=== PATIENT | female | born 1970 | race Caucasian/White ===

== ENCOUNTER 2024-11-05 17:03 | Observation (INO) | payer OTHER, SELFPAY ==
[2024-11-05] VITALS (11 sets, daily range): BP systolic 125–173; BP diastolic 79–112; BMI 30.3; BMI 30.5
--- NOTE | 2024-11-05 11:50 | EDRN ---
Received patient on stretcher. Patient stated that she woke up with numbness in her left hand only and then developed a headache. Patient stated that she's been having intermittent headaches for several days. Left hand grasp slightly weaker than the
right. Denies any numbness,tingling,speech difficulty,visual changes and dizziness. Smile is equal. Tongue is midline. Pupils are equal and reactive to light.
[2024-11-05 12:10] LABS: Hematocrit 41.6 % (37.0-47.0); Hemoglobin 13.6 g/dL (12.0-16.0); Mean Corp Hgb Conc. 32.7 g/dL (33.0-37.0); Mean Corpuscular Volume 87.4 fL (81.0-99.0); Nucleated Red Blood Cells % 0 %; Platelet Count 210 10^3/uL (130-400); Red Cell Dist. Width 13.3 % (11.5-14.5)
[2024-11-05 12:28] LABS: ALT (SGPT) 27 U/L (0-35); AST (SGOT) 20 U/L (14-36); Albumin 4.3 g/dl (3.5-5.0); Alkaline Phosphatase 56 U/L (38-126); Blood Urea Nitrogen 21 mg/dl (7-17); Calcium 9.4 mg/dl (8.4-10.2); Carbon Dioxide 26 mmol/L (22-30); Chloride 108 mmol/L (98-107); Estimated Creatinine Clearance 80 ml/min; Glucose 126 mg/dl (70-99); Potassium 4.2 mmol/L (3.5-5.1); Sodium 141 mmol/L (135-145); Total Protein 7.0 g/dl (6.3-8.2); eGFR > 60.00
--- NOTE | 2024-11-05 12:44 | ED.GENMED ---
History of Present Illness
General
Chief Complaint: Headache
Source: patient
Time Seen by Provider: 11/05/24 12:07
History of Present Illness
History of Present Illness:
53-year-old female with past medical history of intermittent tachycardia presenting to the emergency department for evaluation after she woke up around 8 AM this morning noticing her left upper extremity felt numb accompanied with diminished
sensation to the left upper and left lower extremity accompanied with a right sided headache but patient notes that this headache has been waxing and waning over the last 2 weeks described to be temporal/parietal, improves with Excedrin but then
returns shortly thereafter, initially did not have the headache this morning but about 30 minutes prior to coming to the emergency department states the headache developed, now mostly resolved. Patient and both also state her speech seemed
a little bit slower this morning and still believes speech to be a little bit slower than usual. Patient also admits to some bilateral blurred vision. Denies any history of similar. No fevers or infectious symptoms, chest pain or
shortness of breath, abdominal pain, she denies any nausea to me despite what was reported in triage. Family history noncontributory. Social history was noted for occasional EtOH, admits to some minor alcohol last night but states nothing out of
the ordinary.
Past History
Past History
ED Past Medical History: Other (Intermittent tachycardic episodes)
ED Past Surgical History: Tonsilectomy
Social History
Tobacco: Non-smoker
Alcohol: Occasional
Drug: None
Personal:
Living: with family
Review of Systems
Review of Systems
All Other Systems: ROS reviewed and negative except as documented in HPI and ROS
Phy Exam
Physical Exam
Physical Exam:
GENERAL: Alert , in no apparent distress
HEAD: Normocephalic atraumatic
EYE: pupils equal and reactive,, 4 mm bilateral, EOMI
NECK: Supple
ENT: o/p clr, mmm.
CARDIAC: Regular rate and rhythm .
LUNGS: Clear breath sounds bilaterally, no acute respiratory distress, no wheezes/rales/rhonchi
ABDOMEN: Soft, without focal tenderness, no r/g, no cvat
SKIN: Warm and dry, skin intact.
MUSCULOSKELETAL: No edema, well perfused.
PSYCH: Normal and appropriate interaction.
NEURO: I do not appreciate any speech abnormalities, follows commands and answers questions appropriately, no ataxia, strength is 4 out of 5 to the left upper extremity, 5 out of 5 right upper extremity. 5 out of 5 bilateral lower extremities.
Patient reports subjective sensory diminish on the left upper and left lower extremity.
Scores
NIH Stroke Score
Level of Consciousness: 0 - Alert
LOC Questions: 0-Answers both correctly
LOC Commands: 0-Performs both correctly
Best Horizontal Gaze: 0-Normal
Visual Ortiz: 0=Normal, no visual loss
Facial Palsy: 0=Normal, symmetrical
Motor - Right Arm: 0=No drift 10 seconds
Motor - Left Arm: 0=No drift 10 seconds
Motor - Right Le-No drift 5 seconds
Motor - Left Le-No drift 5 seconds
Limb Ataxia: 0-Absent
Sensation: 1-Mild loss
Best Language: 0-No aphasia
Dysarthria: 0-Normal
Extinction and Inattention: 0-No abnormality
NIH Total Score:: 1
Thrombolytic Contraindication
Inclusion and Exclusion criteria reviewed: Yes
Reasons for NON-Tx with Thrombolytics ABSOLUTE Exclusions: Greater than 4.5 hrs from onset of sxs
Heart Failure Risk
Heart Failure Risk Score: Not Applicable
Heart Score for Chest Pain Patients
STEMI patient?: Not applicable
Withdrawal Assessment of Alcohol
Withdrawal Assessment Completed?: Not applicable
Course
Orders/Labs/Results
Orders:
Orders
11/05/24 11:50
C-Reactive Protein Urgent
Comment: ADD ON
CMP [Comprehensive Metabolic Panel] Urgent
Complete Blood Count/With Diff Urgent
Erythrocyte Sed Rate Urgent
Comment: ADD ON
Glycohemoglobin (HgbA1c) Urgent
11/05/24 12:42
CT Head & Neck Angio W/wo IV Urgent
Comment:
Reason For Exam: right side headache LUE weakness/numbness,LLE weak
11/05/24 12:43
Electrocardiogram (*1) Urgent
Reason for Study: TIA/Stroke
EKG- Treatment ONCE
11/05/24 12:44
Add On- LAB Urgent
Tests Added?: esr/crp
11/05/24 12:56
PTT Urgent
Prothrombin Time Urgent
Troponin I Urgent
11/05/24 15:45
Aspirin Chewable [Low Strength Aspirin] 263 mg PO NOW STA
Atorvastatin [Lipitor] 40 mg PO NOW STA
Clopidogrel Bisulfate [Plavix] 300 mg PO NOW STA
11/05/24 16:13
Consult Neurology [NEUROLOGY CONSULT] Routine
Consulting Provider: Charlie Baird
Was physician already notified: Yes
Reason for consult: New neurological issues
11/05/24 16:18
Admit/Transfer Patient As Directed
Co-Sign Provider:
Level of Care: Observation services
Assign to:: Telemetry
Physician / Group: [email or web address]
Diagnosis: abnormal sensorry dysfunction at both LUExt and LLEx
Reason for Telemetry: CVA/TIA
Date to Stop Telemetry: 11/08/24
Time to Stop Telemetry: 11:00
Reason for Hospitalization: abnormal sensory dysfunction at both LUExt and LLExt
Expected length of stay greater than two midnights?: Yes
11/05/24 16:23
Code Status As Directed
Resuscitation Status: Full Code
11/05/24 18:38
Acetaminophen [Tylenol/Feverall] 650 mg RECTAL Q4HPRN PRN
Acetaminophen [Tylenol] 650 mg PO Q4HPRN PRN
Atorvastatin [Lipitor] 40 mg PO QPM
11/05/24 18:38
Case Management Consult ONCE
Case Management Consult: Discharge Planning
Comment: stroke/tia
DIETARY IP CONSULT Routine
Reason for Consult: stroke/TIA
NEUROLOGY CONSULT Urgent
Consulting Provider: German Ponce
Was physician already notified: Yes
Reason for consult: r/o CVA
Quality Tech Urgent
MR Brain Without Contrast Routine
Comment:
Reason For Exam: stroke/TIA
Recent pill cam endoscopy?: No
Activity As Directed
Activity Level: With Assistance
NIH Stroke Scale As Directed
Directions: Per protocol
Comment: every shift and with any change in condition or mental status
Neurological Checks As Directed
Frequency: q4h
Additional Instructions:: q4h x 24h upon admission to the floor, then qshift & with any change in condition
and mental status
Patient Education As Directed
Type: Stroke education packet
Comment: provide to patient and family
Pneumatic Compression Sleeves As Directed
Type: Knee high
Vital Signs As Directed
Frequency: Per unit guidelines
Ot Eval And Treat Routine
Pt Eval And Treat Routine
Activity Level: With Assistance
Speech Therapy Eval & Treat Routine
DX Deep Vein Thrombosis Video Routine
11/06/24 06:00
Basic Metabolic Panel IN AM
Cardiovascular Evaluation IN AM
Complete Blood Count/No Diff IN AM
11/06/24 08:00
Aspirin Chewable [Low Strength Aspirin] 81 mg PO DAILY
Clopidogrel Bisulfate [Plavix] 75 mg PO DAILY
11/08/24 11:00
DC Protocol for Telemetry ONCE
Abnormal Lab Results
11/05/24
11:50
MCHC 32.7 L g/dL
(33.0-37.0)
MPV 11.0 H fL
(7.4-10.4)
Chloride 108 H mmol/L
(98-107)
BUN 21 H mg/dl
(7-17)
Glucose 126 H mg/dl
(70-99)
11/05/24 11:50
11/05/24 11:50
Vital Signs
Initial and Last Documented VS:
Initial Vital Signs
Temp Pulse Resp BP Pulse Ox
98.3 F 105 20 173/112 99
11/05/24 11:13 11/05/24 11:13 11/05/24 11:13 11/05/24 11:13 11/05/24 11:13
Last Documented Vital Signs
Temp Pulse Resp BP Pulse Ox
98.6 F 85 16 145/93 97
11/05/24 19:00 11/05/24 19:00 11/05/24 19:00 11/05/24 19:00 11/05/24 19:00
MDM/Problems Addressed
Differential Diagnosis Includes:
- Stroke
- Aneurysm
- Malignancy/mass
- MS
- Complex migraine
- Intracranial bleeding
- Electrolyte imbalance
- Peripheral neuropathy
- Hypertensive urgency
MDM/Problems Addressed:
53-year-old female presenting to the emergency department for evaluation of left-sided weakness/numbness, right-sided headache. Headaches have been ongoing for 2 weeks, today patient with the weakness and numbness. I did not call a stroke alert
given the onset of strokelike symptoms is unclear and could go his back is much as 2 weeks. NIH score of 1, not an IAT candidate. Will check CT and CTA head and neck, labs and EKG ordered. Initial triage vital signs noted for significant
hypertension and mild tachycardia, at time of my exam already much improved. Disposition pending.
*Radiology
Radiology exam reviewed: radiology read reviewed
*Pulse Oximetry
SaO2: 99
Oxygen Mode of Delivery: Room air
Patient hypoxic: no
*Lean Leader Interpretation
Rate: normal
Heart Rate: 88
Rhythm: sinus
*Critical Care Note
Total Time (30-74mins, 75-104mins- exclusive of procedures): Not Applicable
Patient Management
Discussion with other providers: Hospitalist and Furnace Reliner
Escalation/DeEscalation of care consider admission/obs:
Patient CT imaging noted for no acute intracranial pathology. I discussed the case with neurology who came to the emergency department to evaluate the patient. Please see their consult note. Following evaluation by neurology it was recommended
that patient be admitted for MRI. Will give 3 tablets of 81 mg aspirin as patient already took 181 mg aspirin today as well as Plavix load with 300 mg p.o. Hospitalist team was notified and accepts for continued evaluation and treatment.
ED Attending Note
-
Portions of this chart may have been created with voice recognition software.� Occasional wrong word or��sound alike� substitutions may have occurred due to the inherent limitations of voice recognition software.
Discharge Plan
Departure
Patient Disposition: Admit
Date of Disposition: 11/05/24
Time of Disposition: 15:47
Presentation/result/management discussed w/ accepting MD/DO: Hospitalist
Discharge Problem:
Acute cerebrovascular accident (CVA)
Interventions
Interventions:
*Risk Screen - Suicide Last Done: 11/05/24 11:13
*General Assessment Last Done: 11/05/24 11:28
*Neglect/Abuse Screening Last Done: 11/05/24 11:13
*ED- Fall Risk Assessment Last Done: 11/05/24 11:28
*ED COVID-19 Vaccine History Last Done: 11/05/24 11:28
*Nursing Disposition Last Done: 11/05/24 19:13
ED- Neurological Assessment Last Done: 11/05/24 16:15
Discharge Date and Time
Discharge Date/Time: 11/05/24 18:30
[2024-11-05 13:12] LABS: INR 0.92; PT 12.6 Sec (11.4-14.6)
[2024-11-05 13:13] LABS: APTT 28.4 Sec (23.4-35.0)
[2024-11-05 13:36] LABS: Troponin I < 0.012 ng/ml
[2024-11-05 13:43] LABS: C-Reactive Protein < 5.00 mg/L (0.0-10.00)
--- NOTE | 2024-11-05 15:53 | CON.NEURO ---
Neuro Assessment/Plan
Assessment
head CT and CTA head/neck imgs and rept rev'd, normal, no plaque seen
suspecting acute stroke >>>complicated migraine,
I performed OMT and L trapezius trigger point inj which essentially resolved her headache and blurry vision, but the deficits persisted
given her lack of risk factors and distant history of tachycardia/palpitations/arrhythmia (some difficulty given language barrier) would recommend Linq, which would have a ~20% yield in finding afib even when embolic etiology is not suspected.
ECHO for suspected Afib
brain MRI for increased headache frequency r/o brain tumor
needs 3 more baby aspirin, Load Plavix 300, 21 days of DAPT, Lipitor 40
Consultation
Order
Date of Consultation: 11/05/24
Requesting Provider: Tariq Dillard
Reason for Consult: Stroke headache
Subjective/Objective
Subjective Data
Date of Service: November 05, 2024
from h&p:
53-year-old female with past medical history of intermittent tachycardia presenting to the emergency department for evaluation after she woke up around 8 AM this morning noticing her left upper extremity felt numb accompanied with diminished
sensation to the left upper and left lower extremity accompanied with a right sided headache but patient notes that this headache has been waxing and waning over the last 2 weeks described to be temporal/parietal, improves with Excedrin but then
returns shortly thereafter, initially did not have the headache this morning but about 30 minutes prior to coming to the emergency department states the headache developed, now mostly resolved. Patient and both also state her speech seemed
a little bit slower this morning and still believes speech to be a little bit slower than usual. Patient also admits to some bilateral blurred vision. Denies any history of similar. No fevers or infectious symptoms, chest pain or
shortness of breath, abdominal pain, she denies any nausea to me despite what was reported in triage. Family history noncontributory. Social history was noted for occasional EtOH, admits to some minor alcohol last night but states nothing out of
the ordinary.
She reports migraines after menopause, however past 2 weeks of increasing headache frequency/severity/duration. never had focal symptoms with migraine before. distant history of tachycardia/palpitations/arrhythmia (partial language barrier)
Objective Data
Vital Signs
Temp Pulse Resp BP Pulse Ox
36.8 C 94 14 140/94 98
11/05/24 11:13 11/05/24 14:49 11/05/24 14:49 11/05/24 14:49 11/05/24 14:49
Lab Results
11/05/24 11:50
11/05/24 11:50
PT 12.6 Sec (11.4-14.6) 11/05/24 12:56
INR 0.92 11/05/24 12:56
APTT 28.4 Sec (23.4-35.0) 11/05/24 12:56
Sodium 141 mmol/L (135-145) 11/05/24 11:50
Potassium 4.2 mmol/L (3.5-5.1) 11/05/24 11:50
BUN 21 mg/dl (7-17) H 11/05/24 11:50
Glucose 126 mg/dl (70-99) H 11/05/24 11:50
Calcium 9.4 mg/dl (8.4-10.2) 11/05/24 11:50
Patient Allergies
soda Allergy (Uncoded 11/05/24 11:18)
Nausea / Vomiting
Physical Exam
-
AAOx3, speech clear, language intact
VFF, EOMI, subtle L facial droop
trace L sided weakness with pronator drift
decrease pinprick L arm
cervical rotation decreased to the left, with palpated atlanto axial subluxation. rt C3 sublux. left trapezius trigger point.
Medications
-
Home Medications
�Medication �Instructions �Recorded
dlwnwni-jrovqrbpsojjh-ofrxxael 250 1 tab PO PRN PRN headache 11/05/24
mg-250 mg-65 mg tablet (Excedrin
Migraine)
vitamin B complex 1 tab PO DAILY 11/05/24
--- NOTE | 2024-11-05 15:56 | HPS.HSE ---
Family Physician
-
Family Physician: NOT KNOW UNKNOWN - PT DOES
Chief Complaint
-
numbness of LUEx with diminished sensation to the LUExt and LLExt
History of Present Illness
53F HX intermittent tachycardia seen at ER:
- At 8am , when she woke up , noted numbness of LUEx with diminished sensation to the LUExt and LLExt
- also unilateral Rt sided temporal/parietal RDZ - it has been waxing and waning over the last 2 weeks improves with Excedrin - initially did not have the headache this morning but about 30 minutes prior to coming to the ER
- Now resolved RDZ
- Patient and noted subjective abnrmal speech o be a little bit slower than usual.
- some bilateral blurred vision.
ROS
Denies any history of similar.
No fevers or infectious symptoms, chest pain or shortness of breath, abdominal pain, she denies any nausea to me despite what was reported in triage.
occasional EtOH, admits to some minor alcohol last night but states nothing out of the ordinary.
Medical History
Past Medical History
Past Medical History: Reports Other (Intermittent tachycardic episodes))
Past Surgical History: Reports Tonsilectomy
Social History
Tobacco: Non-smoker
Family History
Family History: Not pertinent
Allergies / Home Medications
Allergies reflects when Allergies were last updated in [facility] [employer].
Home Medications with original date entered in [employer]
Allergy/Medication List:
Allergies
Allergy/AdvReac Type Severity Reaction Status Date / Time
soda Allergy Nausea / Uncoded 11/05/24 11:18
Vomiting
Home Medications
eeziohv-kxomzcvjxdnns-mghjwhzy 250 mg-250 mg-65 mg tablet (Excedrin Migraine) 1 tab PO PRN PRN headache 11/05/24
vitamin B complex 1 tab PO DAILY 11/05/24
Review of Systems
-
Constitutional: Reports No Symptoms
EENT: Reports No Symptoms
Respiratory: Reports No Symptoms
Cardiac: Reports No Symptoms
Abdomen/GI: Reports No Symptoms
: Reports No Symptoms
Musculoskeletal: Reports No Symptoms
Skin: Reports No Symptoms
Endocrine: Reports No Symptoms
Hematologic/Lymphatic: Reports No Symptoms
Psych: Reports No Symptoms
Physical Exam
Vital Signs
Vital Signs
Temp Pulse Resp BP Pulse Ox
98.3 F 94 14 140/94 98
11/05/24 11:13 11/05/24 14:49 11/05/24 14:49 11/05/24 14:49 11/05/24 14:49
Physical Exam
General: Well Developed, Well Nourished and No Apparent Distress
HEENT: NormoCephalic, Moist mucous membranes and Atraumatic
Respiratory: Clear
Cardiac: S1/S2 and Regular Rhythm; No Murmur or Rub
GI: Soft, Non Tender, Non Distended and Normal Bowel Sounds; No Organomegaly
Rectal: Deferred by Provider
Musculoskeletal: No Clubbing, No Cyanosis and No Edema
Skin: No Rash
Neuro: Nonfocal/grossly intact
Laboratory Results
-
11/05/24 11:50
11/05/24 11:50
Laboratory Results
PT 12.6 Sec (11.4-14.6) 11/05/24 12:56
INR 0.92 11/05/24 12:56
APTT 28.4 Sec (23.4-35.0) 11/05/24 12:56
Total Bilirubin 0.4 mg/dl (0.2-1.3) 11/05/24 11:50
AST 20 U/L (14-36) 11/05/24 11:50
ALT 27 U/L (0-35) 11/05/24 11:50
Alkaline Phosphatase 56 U/L (38-126) 11/05/24 11:50
Troponin I < 0.012 ng/ml 11/05/24 12:56
Data Reviewed
-
CT Scan: Report Reviewed by me
Lab Data: Labs Reviewed by me
Impression/Plan
-
Vital Signs
Temp Pulse Resp BP Pulse Ox
98.3 F 94 14 140/94 98
11/05/24 11:13 11/05/24 14:49 11/05/24 14:49 11/05/24 14:49 11/05/24 14:49
Laboratory Tests
11/05/24 11/05/24
11:50 12:56
WBC 7.6
Hgb 13.6
Plt Count 210
INR 0.92
Creatinine 0.8
eGFR > 60.00
Glucose 126 H
Troponin I < 0.012
C-Reactive Protein < 5.00
ASSESSMENT & PLAN
Pending Rx reconciliation
Woke up with abnormal sensory dysfunction at both LUExt and LLExt
DDX CVA vs complex Migraine
- NEG H & N CTA
- eval for CVA
- ASA
- a1C and Lipds
- Hold of Statin for now
- Brain MRI in AM
- Neuro consulted
DVT Px: SCD
Full code
OBS TLM
--- NOTE | 2024-11-05 16:11 | W.PN.UPDATE ---
Update Note
Progress Note Update
procedure note
93079 trigger point inj 1-2
M79.10 trigger point myalgia
3 cc syringe 25g x5/8 in needle, 2.5 cc of bupivacaine 0.5% injected into palpated trigger point
[2024-11-05] MEDS: LOW STRENGTH ASPIRIN 263 MG PO (16:19)
[2024-11-05] MEDS: PLAVIX 300 MG PO (16:20)
[2024-11-05] MEDS: LIPITOR 40 MG PO ×2 (16:20→19:55)
--- NOTE | 2024-11-05 18:43 | PTCARENOTE ---
Pt received from ED to 417-1. Pt oriented to room and call elder.
[2024-11-06] VITALS (7 sets, daily range): BP systolic 117–140; BP diastolic 71–97; PULSE 80; O2SAT 95
[2024-11-06 06:19] LABS: Hematocrit 41.6 % (37.0-47.0); Hemoglobin 13.7 g/dL (12.0-16.0); Mean Corp Hgb Conc. 32.9 g/dL (33.0-37.0); Mean Corpuscular Volume 86.7 fL (81.0-99.0); Platelet Count 217 10^3/uL (130-400); Red Cell Dist. Width 13.4 % (11.5-14.5)
[2024-11-06 06:45] LABS: Blood Urea Nitrogen 16 mg/dl (7-17); Calcium 9.1 mg/dl (8.4-10.2); Carbon Dioxide 25 mmol/L (22-30); Chloride 109 mmol/L (98-107); Estimated Creatinine Clearance 92 ml/min; Glucose 110 mg/dl (70-99); HDL Cholesterol 52 mg/dl; LDL Cholesterol, Calculated 189 mg/dl; Potassium 4.5 mmol/L (3.5-5.1); Sodium 140 mmol/L (135-145); Very Low Density Lipoprotein 27 mg/dl (0-30); eGFR > 60.00
[2024-11-06] MEDS: PLAVIX 75 MG PO (07:56)
[2024-11-06] MEDS: LOW STRENGTH ASPIRIN 81 MG PO (07:56)
[2024-11-06 10:26] LABS: Glycohemoglobin (HgbA1c) 5.9 % (4.0-5.6)
--- NOTE | 2024-11-06 11:22 | W.PN.HOSP.TC ---
Today's Communication/Plan
-
Await MRI
Echo
Outpatient school bus monitor
Assessment / Plan
Assessment / Plan
53-year-old with intermittent tachycardia and left upper extremity diminished sensation also had right-sided temporal/parietal headache waxing and waning over the past 2 weeks improving with Excedrin. Also had some blurry vision and has been noted
speech was a little bit slower than usual.
CTA of the head-no acute intracranial abnormality. No evidence for significant atherosclerotic plaque no evidence for significant stenosis involving carotid bulbs or proximal internal carotid arteries bilaterally.No evidence for significant
narrowing involving the vertebral or basilar arteries.No evidence for significant stenosis involving the intracranial circulation.There is no angiographic evidence for arterial dissection.
EKG- SR,Normal
CVS: S1-S2 normal
Chest: CTA B/L
Abdomen: Soft, NT / Bowel sounds present
Extremities: No edema, normal pulses
CARPET WINDER: No facial droop. No sensory loss upper extremity or lower extremity on the left side
# Sensory dysfunction left upper extremity and left lower extremity
Migraine versus CVA
Patient states that her numbness got much better
Admitted for CVA workup
MRI results pending
Neurology has been consulted
Patient received OMT and left trapezius trigger point injection which resolved the headache, still had some neurosymptoms
Check echo
Continue aspirin Plavix and Lipitor
# History of tachycardia-patient has had a Holter monitor over 15 years ago. She does not follow-up with cardiology. Discussed about outpatient school bus monitor. Will order echo.
# History of migraines
# History of nephrolithiasis
# History of anemia
# Obesity per BMI criteria
# DVT prophylaxis-Lovenox
# Full code
D/W at bed side
Part of this note was created using voice recognition system. Occasional wrong word or��sound alike� substitutions may have inadvertently occurred due to the inherent limitations of voice recognition software. If noted kindly bring it to my
attention for correction.
Anticipated Discharge: Within 24 hours
Subjective/Interval History
-
Date of Service: November 06, 2024
Objective Data
-
Labs:
Laboratory Results
11/06/24
05:55
WBC 8.2
Hgb 13.7
Hct 41.6
Plt Count 217
Sodium 140
Potassium 4.5
Chloride 109 H
Carbon Dioxide 25
BUN 16
Creatinine 0.7
Glucose 110 H
Calcium 9.1
Vital Signs:
Vital Signs
Temp Pulse Resp BP Pulse Ox
98.2 F 87 12 138/85 95
11/06/24 07:00 11/06/24 07:00 11/06/24 07:00 11/06/24 07:00 11/06/24 07:00
I&O
11/05/24 11/06/24 11/07/24
06:59 06:59 06:59
Intake Total 480 / 480
Balance 480 / 480
[2024-11-06 11:57] LABS: Magnesium 2.0 mg/dl (1.6-2.3)
--- NOTE | 2024-11-06 16:08 | PTOTSP ---
Addendum entered and electronically signed by ST Radha 11/06/24 16:09:
HEALTH OUTCOMES LIAISON will sign off given patient's clinical presentation.
Original Note:
Speech therapy
Presentation: Patient's speech and language appeared to be WNL during conversation. Patient was oriented. Patient denied any communicative deficits.
Swallowing Function: Patient was observed with several bites of regular consistency solids and sips of thin liquids in which patient appeared to tolerate as she did not exhibit any overt clinical s/sx of aspiration or difficulty with mastication/
manipulation. Patient denied any dysphagia complaints. Of note, patient reports a preference for low/ gluten free diet as it assists with her eczema.
Recommendations:
1) reg/ thin
2) aspiration precautions
3) medications as tolerated
4) preference for low/ gluten free diet
Plan: HEALTH OUTCOMES LIAISON will continue to follow; pending hospitalization.
[2024-11-06 16:17] LABS: C-Reactive Protein < 5.00 mg/L (0.0-10.00)
[2024-11-06 16:52] LABS: Ferritin 54.3 ng/ml (11.1-264.0)
[2024-11-06 17:24] LABS: Folate 12.0 ng/ml (2.76-20); Vitamin B12 591 pg/ml (239-931)
[2024-11-06] MEDS: LOVENOX 40 MG SC (17:58)
[2024-11-06] MEDS: LIPITOR 40 MG PO (17:58)
--- NOTE | 2024-11-06 18:14 | W.PN.NEURO.1 ---
Today's Communication / Plan
-
MADHU tomorrow
Neuro Assessment/Plan
Assessment
head CT and CTA head/neck imgs and rept rev'd, normal, no plaque seen
brain MRI imgs rev'd, normal
suspecting acute stroke - too small to show on MRI, but subtle deficits persist
given her lack of risk factors (LDL 189 but CTA is clean) and distant history of tachycardia/palpitations/arrhythmia suspicion for embolic
will order folate, b12, ESR/CRP, Ferritin, ESR, CRP
cardiology consulted for MADHU. she will skip ILR and get apple watch
CT c contrast torso to rule out emboli lung/kidney/spleen
21 days of DAPT, Lipitor 40 for now
Subjective/Objective
Subjective Data
Date of Service: November 06, 2024
feels well, symptoms resolved
Objective Data
Vital Signs
Temp Pulse Resp BP Pulse Ox
37.1 C 90 12 139/97 98
11/06/24 15:00 11/06/24 15:00 11/06/24 15:00 11/06/24 15:00 11/06/24 15:00
Lab Results
11/06/24 05:55
11/06/24 05:55
PT 12.6 Sec (11.4-14.6) 11/05/24 12:56
INR 0.92 11/05/24 12:56
APTT 28.4 Sec (23.4-35.0) 11/05/24 12:56
Sodium 140 mmol/L (135-145) 11/06/24 05:55
Potassium 4.5 mmol/L (3.5-5.1) 11/06/24 05:55
BUN 16 mg/dl (7-17) 11/06/24 05:55
Glucose 110 mg/dl (70-99) H 11/06/24 05:55
Calcium 9.1 mg/dl (8.4-10.2) 11/06/24 05:55
LDL Cholesterol, Calc 189 mg/dl 11/06/24 05:55
Vitamin B12 591 pg/ml (239-931) 11/06/24 05:55
Patient Allergies
soda Allergy (Uncoded 11/05/24 11:18)
Nausea / Vomiting
Physical Exam
-
subtle left facial droop and left pronator drift
--- NOTE | 2024-11-06 19:38 | CON.CAR ---
Consultation
Consultation Request
Date/Time Consultation Requested: 11/06/2024 14: 00
Date/Time Consultation Performed: 11/06/2024 19: 15
Requesting Provider: Rosario
Performing Provider: Corona
Reason for Consultation: Cardiology consultation for MADHU
Medical History
-
Chief Complaint: Headache as well as left upper and left lower extremity numbness
History of Present Illness:
Areli has a history of tachycardia on as needed propranolol. She was followed by cardiology in [place] in the past. She presents with headache and left upper and lower extremity numbness. There is no chest pain, shortness breath, or
palpitations. She also noted blurred vision. The symptoms have resolved. Cardiology is consulted for MADHU by neurology to exclude cardiac etiology.
Past Medical History
Past Medical History: Other (History of intermittent tachycardia on as needed labetalol followed by cardiology in [place]. History of mitral valve prolapse.)
Past Surgical History: Tonsilectomy
Social History
Tobacco: Non-Smoker
Alcohol: Occasional
Drug: None
Personal:
Living: With Family
Employment: Not Employed
Family History
Family History: Other (There is no family history of premature coronary artery disease although father had an LA in his 70s)
Allergies / Home Medications
Allergy/AdvReac Type Severity Reaction Status Date / Time
soda Allergy Nausea / Uncoded 11/05/24 11:18
Vomiting
�Medication �Instructions �Recorded �Confirmed �Type
[id number]-[id number] 250 1 tab PO DAILYPRN PRN headache 11/05/24 11/05/24 History
mg-250 mg-65 mg tablet (Excedrin
Migraine)
vitamin B complex 1 tab PO DAILY Supplement 11/05/24 11/05/24 History
Review of Systems
-
History Source: Patient
All other systems: Negative unless noted
Constitutional: No Symptoms
EENT: No Symptoms
Respiratory: No Symptoms
Cardiac: No Symptoms
Abdomen/GI: No Symptoms
: No Symptoms
Musculoskeletal: No Symptoms
Skin: No Symptoms
Neurological: Headache, Weakness and Numbness
Endocrine: No Symptoms
Hematologic/Lymphatic: No Symptoms
Physical Exam
Vital Signs
Temp Pulse Resp BP Pulse Ox
98.8 F 90 12 139/97 98
11/06/24 15:00 11/06/24 15:00 11/06/24 15:00 11/06/24 15:00 11/06/24 15:00
General: Well developed, well nourished in NAD.
Neck: Supple, no JVD, HJR, carotids +2 B/L, no bruits bilaterally.
Heart: Non displaced PMI, RRR, no murmurs, No S3, S4, no rubs.
Lungs: Clear to auscultation bilaterally, no wheeze, rhonchi, rubs bilaterally,
normal expiratory phase.
Abdomen: Normal bowel sounds, soft, non-tender, non-distended.
Extremities: No clubbing, cyanosis or edema bilaterally.
Neuro: Grossly nonfocal, awake, alert and oriented x3.
Lab Results
11/06/24 05:55
11/06/24 05:55
Troponin I < 0.012 ng/ml 11/05/24 12:56
Impression / Plan
-
Impression:
Left upper extremity left lower extremity weakness/numbness
History of tachycardia on as needed labetalol
History of migraines
History of nephrolithiasis
History of anemia
Plan:
Patient presents with left upper extremity left lower extremity weakness. Cardiology has been consulted to exclude cardiac embolic etiology with MADHU.
I explained risk and benefits in detail to patient and she agrees to proceed
Neurology started patient on aspirin and Plavix as well as Lipitor.
Data Reviewed
-
EKG: Tracing Personally Visualized and interpreted
Radiology: Report Reviewed by me
MRI: Report Reviewed by me
Medical Tests (Nuc Med, Echo etc): Report Reviewed by me
Labs: Labs Reviewed by me
Old Records: Reviewed
[2024-11-07 02:52] VITALS: BP 114/74
[2024-11-07 07:25] VITALS: BP 124/86
[2024-11-07] MEDS: PLAVIX 75 MG PO (08:29)
[2024-11-07] MEDS: LOW STRENGTH ASPIRIN 81 MG PO (08:30)
--- NOTE | 2024-11-07 09:15 | W.PN.NEURO.1 ---
Addendum entered and electronically signed by Charlie Baird MD 11/07/24 17:39:
Addendum:
Provide prochlorperazine for continued headache
Physical and Occupational Therapy as needed
Original Note:
Today's Communication / Plan
-
Start Atorvastatin
May discontinue aspirin and clopidogrel with more likely diagnosis of migraine with aura
Neuro Assessment/Plan
Assessment
head CT and CTA head/neck imgs and rept rev'd, normal, no plaque seen
brain MRI imgs rev'd, normal
suspecting Migraine with aura
given her lack of risk factors (LDL 189 but CTA is clean) and distant history of tachycardia/palpitations/arrhythmia suspicion for embolic
Unremarkable folate, b12, ESR/CRP, Ferritin, ESR, CRP
Plan
Start Atorvastatin
May discontinue aspirin and clopidogrel with more likely diagnosis of migraine with aura
goal of normotension
Will follow as outpatient
Subjective/Objective
Subjective Data
Date of Service: November 07, 2024
Objective Data
Vital Signs
Temp Pulse Resp BP Pulse Ox
36.6 C 87 18 114/74 97
11/07/24 02:52 11/07/24 02:52 11/07/24 02:52 11/07/24 02:52 11/07/24 02:52
Lab Results
11/06/24 05:55
11/06/24 05:55
PT 12.6 Sec (11.4-14.6) 11/05/24 12:56
INR 0.92 11/05/24 12:56
APTT 28.4 Sec (23.4-35.0) 11/05/24 12:56
Sodium 140 mmol/L (135-145) 11/06/24 05:55
Potassium 4.5 mmol/L (3.5-5.1) 11/06/24 05:55
BUN 16 mg/dl (7-17) 11/06/24 05:55
Glucose 110 mg/dl (70-99) H 11/06/24 05:55
Calcium 9.1 mg/dl (8.4-10.2) 11/06/24 05:55
LDL Cholesterol, Calc 189 mg/dl 11/06/24 05:55
Vitamin B12 591 pg/ml (239-931) 11/06/24 05:55
Patient Allergies
soda Allergy (Uncoded 11/05/24 11:18)
Nausea / Vomiting
Data Reviewed
-
MRI Head: Report Reviewed
Reviewed with: Physician
Old Records: Summarized
[2024-11-07 11:00] VITALS: BP 130/86
--- NOTE | 2024-11-07 12:53 | CM ---
CM reviewed chart, patient seen bedside, initial assessment completed. Patient resides with her in a two story condo. Patient is independent with ADLs/IADLS, denies use of DME. 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
clearance she can return to work. Patient does not have a PCP, provided list of local PCPs. Patient confirms pharmacy [facility] in [place], confirms prescription coverage, denies insecurities at home. Patient provided OBS form, inquiring why she
was admitted OBS and not inpatient, TT to Dr. Morrison. Patient requesting return to work note, update to Hospitalist. Patient confirms will provide transportation home. CM will continue to follow for all discharge planning needs.
Plan; home with
--- NOTE | 2024-11-07 12:56 | W.PN.CARDCBS ---
Today's Communication / Plan
-
Transesophageal echocardiogram without cardioembolic source identified. Interatrial septum intact by color-flow Doppler and bubble study.
Will sign off, recall if needed
Impression / Plan
-
Impression:
Left upper extremity left lower extremity weakness/numbness
History of tachycardia on as needed labetalol
History of migraines
History of nephrolithiasis
History of anemia
Plan:
Admitted with left lower extremity weakness/numbness with negative CT head, CTA head and neck and brain MRI.
-Neurology requesting MADHU completed today without complication
-Transesophageal echocardiogram with normal biventricular size and systolic function. No left atrial appendage thrombus. Intra-atrial septum is intact without shunt by multiple bubble studies. Patient reports history of mitral valve prolapse not
appreciated on this study and no hemodynamically significant mitral regurgitation.
-Study results discussed with neurology and primary service
-Neurology now favoring migraine with aura: Will defer antiplatelet therapy decision to neurology
Hyperlipidemia not previously on statin
- Lipid profile this admission: Total cholesterol 268, LDL 189, HDL 52, triglycerides 139.
- Agree with Initiation of atorvastatin 40 mg daily. 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
History of sinus tachycardia
- No atrial fibrillation noted on telemetry monitoring
-Twelve-lead EKG 11/05/2024: Normal sinus rhythm. Normal EKG.
- CTA chest/abdomen/pelvis: No PE. No thoracic aortic aneurysm. Minimal noncalcified atherosclerotic plaque. 2 mm nodule nodule lateral left upper lobe likely benign. Known aneurysmal abdominal aorta. Hepatic steatosis noted.
- TSH within normal limits.
- No indication for ILR at this time
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
Will sign off, recall if needed
Progress Note - Can Worker
Subjective
Date of Service: November 07, 2024
Patient was seen and examined prior to transesophageal echocardiogram. Offers no new complaints; no contraindications to proceeding. Transesophageal echocardiogram performed without complications. Discussed findings with patient
Objective
Labs:
11/06/24 05:55
11/06/24 05:55
Labs
Hgb 13.7 g/dL (12.0-16.0) 11/06/24 05:55
Hct 41.6 % (37.0-47.0) 11/06/24 05:55
Plt Count 217 10^3/uL (130-400) 11/06/24 05:55
PT 12.6 Sec (11.4-14.6) 11/05/24 12:56
INR 0.92 11/05/24 12:56
APTT 28.4 Sec (23.4-35.0) 11/05/24 12:56
Sodium 140 mmol/L (135-145) 11/06/24 05:55
Potassium 4.5 mmol/L (3.5-5.1) 11/06/24 05:55
BUN 16 mg/dl (7-17) 11/06/24 05:55
Creatinine 0.7 mg/dL (0.6-1.0) 11/06/24 05:55
Glucose 110 mg/dl (70-99) H 11/06/24 05:55
Troponins
11/05/24
12:56
Troponin I < 0.012
Vital Signs and I&O:
Vital Signs
Temp Pulse Resp BP Pulse Ox
97.4 F 80 18 130/86 99
11/07/24 11:00 11/07/24 11:00 11/07/24 11:00 11/07/24 11:00 11/07/24 11:00
Vital Signs
Temp Pulse Resp BP Pulse Ox
97.4 F 80 18 130/86 99
11/07/24 11:00 11/07/24 11:00 11/07/24 11:00 11/07/24 11:00 11/07/24 11:00
Intake & Output
11/05/24 11/06/24 11/07/24 11/08/24
06:59 06:59 06:59 06:59
Intake Total 480 / 480 240 / 240
Balance 480 / 480 240 / 240
Physical Exam
Physical Exam
General: No acute distress, AAOX3
Neck: Negative JVD
Heart: Regular, positive S1/S2, No murmur
Lungs: CTA b/l, negative wheezes/rales/rhonchi
Abd: Positive BS, NT/ND, neg rebound/rigidity/guarding
Ext: No edema
--- NOTE | 2024-11-07 13:57 | W.PN.HOSP.TC ---
Addendum entered and electronically signed by Carlos Gonzalez MD 11/07/24 14:07:
More than 30 minutes spent in discharge including
Final examination of the patient
Summarizing hospital stay
Instructions for continuing care to all relevant caregivers
Preparation of discharge records, prescriptions, and referral forms
Total time spent (in minutes): 32 min
Original Note:
Today's Communication/Plan
-
Okay for discharge
Patient requested a copy of imaging on a CD staff will arrange it
Print out for CT abdomen and pelvis given to the patient
Assessment / Plan
Assessment / Plan
53-year-old with intermittent tachycardia and left upper extremity diminished sensation also had right-sided temporal/parietal headache waxing and waning over the past 2 weeks improving with Excedrin. Also had some blurry vision and has been noted
speech was a little bit slower than usual.
CTA of the head-no acute intracranial abnormality. No evidence for significant atherosclerotic plaque no evidence for significant stenosis involving carotid bulbs or proximal internal carotid arteries bilaterally.No evidence for significant
narrowing involving the vertebral or basilar arteries.No evidence for significant stenosis involving the intracranial circulation.There is no angiographic evidence for arterial dissection.
EKG- SR,Normal
CVS: S1-S2 normal
Chest: CTA B/L
Abdomen: Soft, NT / Bowel sounds present
Extremities: No edema, normal pulses
OIL HEATERMAN: No facial droop. No sensory loss upper extremity or lower extremity on the left side
Verbal report per Dr. Peng on MADHU negative for GENIA thrombus and PFO/shunt. No MVP
# Sensory dysfunction left upper extremity and left lower extremity
Migraine versus
Patient states that her numbness got much better
MRI without any acute changes
Patient received OMT and left trapezius trigger point injection which resolved the headache, still had some neurosymptoms
MADHU without any
Continue Lipitor. Discontinue aspirin and Plavix per neurology, likely this is migraines
# History of tachycardia-patient has had a Holter monitor over 15 years ago. She does not follow-up with cardiology. Discussed about outpatient education program associate. Echo as above
# History of migraines
# History of nephrolithiasis
# History of anemia
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 Outpatient follow-up recommended
# 2. Millimeter solid nodule in the lateral left upper lobe-outpatient follow-up recommended
# Hepatic steatosis
# Obesity per BMI criteria
# DVT prophylaxis-Lovenox
# Full code
D/W cardiology neurology
Discussed with nursing
Okay for discharge
More than 30 minutes spent in discharge including
Final examination of the patient
Summarizing hospital stay
Instructions for continuing care to all relevant caregivers
Preparation of discharge records, prescriptions, and referral forms
Total time spent (in minutes): 33 min
Part of this note was created using voice recognition system. Occasional wrong word or��sound alike� substitutions may have inadvertently occurred due to the inherent limitations of voice recognition software. If noted kindly bring it to my
attention for correction.
Anticipated Discharge: Today
Subjective/Interval History
-
Date of Service: November 07, 2024
Objective Data
-
Vital Signs:
Vital Signs
Temp Pulse Resp BP Pulse Ox
97.4 F 80 18 130/86 99
11/07/24 11:00 11/07/24 11:00 11/07/24 11:00 11/07/24 11:00 11/07/24 11:00
I&O
11/06/24 11/07/24 11/08/24
06:59 06:59 06:59
Intake Total 480 / 480 240 / 240
Balance 480 / 480 240 / 240
[2024-11-07 13:59] LABS: Lyme Antibody Screen, EIA Negative (Negative)
--- NOTE | 2024-11-07 14:06 | W.DS.TRANS ---
Addendum entered and electronically signed by Carlos Gonzalez MD 11/07/24 16:28:
Dictation- [id number]
Original Note:
DC Summary - Licensing Registration Examiner
-
Discharge Instructions:
Discharge Diagnosis/Procedures Migraine
High cholesterol
Anemia
3.3 cm right adnexal lesion
2 mm nodule in the lateral left upper lobe of
the lung
Fatty liver
Diet As tolerated
Activity As tolerated
Driving Restrictions As prior to admission
Blood Work Liver function tests and cholesterol levels in 2
to 3 months
Instructions:
Stand-Alone Forms:
Changes to Home Medications: Yes
Discharge Medications:
DC Medications w/original date entered in [employer]
csbgzeb-obmroqpxbtrnh-mnjxvxyp 250 mg-250 mg-65 mg tablet (Excedrin Migraine) 1 tab PO DAILYPRN PRN headache 11/05/24
vitamin B complex 1 tab PO DAILY Supplement 11/05/24
atorvastatin 40 mg tablet 40 mg PO QPM High cholesterol #30 tabs 11/07/24
Home Medication Changes
Pending Results: Yes (Lyme serology pending)
[2024-11-07 15:35] VITALS: BP 140/88
[2024-11-07] MEDS: COMPAZINE 10 MG IV (18:13)
[2024-11-07] MEDS: LIPITOR 40 MG PO (18:13)
== END 2024-11-07 18:57 | disposition home or self-care (01) ==
LOC: 4 WEST ACU 17:03
PROVIDERS: Physician Assistant Medical; ADMITTING PHYSICIAN Internal Medicine; ATTENDING PHYSICIAN Hospitalist; CONSULT PHYSICIAN Internal Medicine Cardiovascular Disease; CONSULT PHYSICIAN Psychiatry & Neurology Clinical Neurophysiology; EMERGENCY PHYSICIAN Student in an Organized Health Care Education/Training Program
DX: G43.909 Migraine, unspecified, not intractable, without status migrainosus (principal); M79.10 Myalgia, unspecified site; E78.00 Pure hypercholesterolemia, unspecified; D64.9 Anemia, unspecified; R91.1 Solitary pulmonary nodule; K76.0 Fatty (change of) liver, not elsewhere classified; N94.89 Other specified conditions associated with female genital organs and menstrual cycle; E66.9 Obesity, unspecified; Z68.30 Body mass index [BMI] 30.0-30.9, adult; Z79.899 Other long term (current) drug therapy; Z79.02 Long term (current) use of antithrombotics/antiplatelets; Z86.79 Personal history of other diseases of the circulatory system; Z87.442 Personal history of urinary calculi
CPT/HCPCS: 20552; 70496; 70498; 70551; 71275; 74177; 80048; 80053; 80061; 82607; 82728; 82746; 83036; 83735; 84443; 84484; 85025; 85027; 85610; 85652; 85730; 86140; 86618; 92610; 93005; 93312; 93320; 93325; 97162; 97166; 99285; G0378; Q9967